=== PATIENT | male | born 1930 | race Caucasian/White ===

== ENCOUNTER 2021-06-22 17:22 | Emergency (ER) | payer OTHER ==
[~2021-06-22] VITALS: Ht 167.6 cm; Wt 72.6 kg
[2021-06-22 17:59] LABS: ABSOLUTE NEUTROPHILS 5.2 thou/uL (1.4-8.2); BASOPHILS 1.1 % (0.0-2.0); EOSINOPHILS 3.3 % (0.0-3.0); HEMATOCRIT 45.4 % (42.0-52.0); HEMOGLOBIN 14.9 gm/dL (14.0-18.0); LYMPHOCYTES 16.5 % (24.0-44.0); MCH 31.1 pg (26.0-34.0); MCHC 32.8 g/dL (28.0-37.0); MCV 94.9 fL (80.0-100.0); MONOCYTES 10.2 % (1.0-8.0); PLATELET COUNT 201 thou/uL (150-400); POLYS 68.9 % (36.0-66.0); RBC 4.78 mil/uL (4.50-6.00); WBC 7.5 thou/uL (4.0-11.0)
[2021-06-22 18:26] LABS: CALCIUM 9.4 mg/dL (8.5-10.1); CREATININE 1.9 mg/dL (0.7-1.3); POTASSIUM 4.2 mmol/L (3.5-5.1)
[2021-06-22 18:29] LABS: ALBUMIN 3.8 g/dL (3.4-5.0); TOTAL BILIRUBIN 0.5 mg/dL (0.2-1.0); TOTAL PROTEIN 6.8 g/dL (6.4-8.2)
[2021-06-22 18:43] LABS: URINE BILIRUBIN NEGATIVE (Negative); URINE BLOOD 1+ (Negative); URINE CLARITY CLEAR; URINE COLOR YELLOW; URINE GLUCOSE-RANDOM* NEGATIVE (Negative); URINE KETONES TRACE (Negative); URINE LEUKOCYTES-REFLEX NEGATIVE (Negative); URINE NITRITE-REFLEX NEGATIVE (Negative); URINE PROTEIN (DIPSTICK) 1+ (Negative); URINE UROBILINOGEN 0.2 E.U./dl (0.2-1.0)
[2021-06-22 19:00] LABS: SQUAMOUS None Seen /LPF (0-3)
[2021-06-22 19:01] LABS: BACTERIA-REFLEX 1-9 Few /HPF (None Seen); CRYSTALS None Seen /LPF (None Seen); HYALINE CASTS 0-3 Few /LPF (None Seen); URINE WBC-REFLEX 0-5 Rare /HPF (0-5)
[2021-06-23 01:42] VITALS: BP 161/86
[2021-06-23] MEDS ORDERED: PROSCAR 5MG TABL5 M1 PO (03:54)
[2021-06-23] MEDS ORDERED: CRESTOR40 MG PO (03:54)
[2021-06-23] MEDS ORDERED: PLAVIX 75 MG TA75 M1 PO (03:54)
[2021-06-23] MEDS ORDERED: AMLODIPINE BESY10 MG PO (03:54)
[2021-06-23] MEDS ORDERED: TIMOLOL MALEATE5 M2 OPHTHALMIC (03:55)
[2021-06-23] MEDS ORDERED: PROTONIX40 M4 PO (03:56)
[2021-06-23] MEDS ORDERED: FLUTICASONE PRO16 GM NARES (03:56)
--- NOTE | 2021-06-23 08:06 | EKG ---
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: MAGUI : [id number] Requested By: Isaiah Davis Order Number: [id number] MD: Wallace Montoya Measurements Intervals [place] Rate: 60 P: DE: 221 QRS: -57 QRSD: 137 T: -51 QT: 445 QTc: 445 Interpretive Statements Atrial-paced complexes Prolonged DE interval RBBB and LAFB No previous ECG available for comparison Electronically Signed On 06-23-2021 8:06:12 INSULATION INSTALLER by Wallace Montoya [email or web address] <ELECTRONICALLY SIGNED> By: Wallace Montoya MD, [facility] 06/23/21 0806 [id number] 1757 Wallace Montoya MD, FACC /EPI
== END 2021-06-23 02:26 ==
LOC: ER 17:22
PROVIDERS: Emergency Medicine
DX: R44.3 Hallucinations, unspecified (principal); Z20.822 Contact with and (suspected) exposure to COVID-19; I25.2 Old myocardial infarction; Z86.73 Personal history of transient ischemic attack (TIA), and cerebral infarction without residual deficits

== ENCOUNTER 2021-06-22 23:30 | Inpatient (IN) | payer OTHER ==
[2021-06-23 03:20] VITALS: BP 147/66
[2021-06-23] MEDS ORDERED: AMLODIPINE BESY10 MG PO (03:54)
[2021-06-23] MEDS ORDERED: CRESTOR40 MG PO (03:54)
[2021-06-23] MEDS ORDERED: PLAVIX 75 MG TA75 M1 PO (03:54)
[2021-06-23] MEDS ORDERED: PROSCAR 5MG TABL5 M1 PO (03:54)
[2021-06-23] MEDS ORDERED: TIMOLOL MALEATE5 M2 OPHTHALMIC (03:55)
[2021-06-23] MEDS ORDERED: FLUTICASONE PRO16 GM NARES (03:56)
[2021-06-23] MEDS ORDERED: PROTONIX40 M4 PO (03:56)
--- NOTE | 2021-06-23 07:17 | NUR ---
PT ARRIVED ON THE UNIT AT 0300 IN A STABLE CONDITION.PT IS ALERT AND ORIENTED X4. PT HAS URINE FREQUENCY. PT HAS IV IN THE RIGHT WRISH WITH NS @25OML/HR. PT HAS +1 EDEMA TO FEET. PT IS ON RA. PT DID NOT VERBALIZE ANY CONCERNS AND NO VISIBLE SIGN OF DISTRESS NOTED.
--- NOTE | 2021-06-23 08:36 | NUR ---
ARRIVED ON THE FLOOR @ 0300 ON 06/23/21, A&OX4 WITH CONFUSION. PLEASANT AFFECT NOTED, REPORTS RESIDES WITH HIS IN A SECONDARY DWELLING UNIT ON THE SON'S PROPERTY ON [address] [facility]. PATIENT WEARING GLASSES, NEEDS HEARING AIDES, IS [place], BUT DOES NOT HAVE HEARING AIDES WITH HIM. 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 SKIN INTACT, PEDAL PULSES PRESENT, TOENAILS LONG AND THICK, FEET NOTED TO HAVE +1 EDEMA, RED DOTS NOTED ON LOWER EXTREMITIES. HRRR, LUNGS CTA BILAT, ABD N BS X4Q, PATIENT REPORTS BM ON 06/23. REPORTS PAIN IN LOWER BACK, ESPECIALLY AFTER WORKING. TAKES TYLENOL PM @ HS FOR PAIN. IV STARTED IN RIGHT WRIST, ONE ATTEMPT, WITH NS RUNNING @ 250 CC/HOUR FOR 1000ML BAG. HIGH FALL RISK AND NEEDS TO USE A WALKER FOR AMBULATION SAFETY. BED IN LOW POSITION, BED ALARM SET. WILL CONTINUE TO MONITOR FOR COMFORT AND SAFETY.
[2021-06-23 09:21] VITALS: BP 132/79
[2021-06-23 13:36] LABS: CALCIUM 9.1 mg/dL (8.5-10.1); CREATININE 1.3 mg/dL (0.7-1.3); POTASSIUM 3.7 mmol/L (3.5-5.1)
--- NOTE | 2021-06-23 17:15 | NUR ---
PATIENT WAS IN BED AWAKE THIS MORNING WHEN CARE ASSUMED. IV RUNNING AT 250ML/HR. IV INFUSION STOPPED AT 0930HRS, SALINE LOCK FLUSHED WITH NS. PATIENT HAD BREAKFAST IN ROOM THIS MORNING, CONSUMED 100%, HE IS EATING MEALS, AND DRINKING FLUIDS WELL. PATIENT IS ALERT, AND ORIENTED X 1-2, HE IS FORGETFUL, VERY CONFUSED. PATIENT IS PRESENTING WITH VISUAL HALLUCINATION, SEEING TWO MEN SITTING AT THE SIDE HIS BED. PATIENT RESPONDS TO INTERNAL STIMULI, TALKING TO SELF, AND UNSEEN OTHERS. PATIENT TOOK ALL MEDICATION WHOLE WITHOUT DIFFICULTY. PATIENT AMBULATE WITH ASSIST OF ROLLER WALKER, GAIT UNSTEADY. PATIENT REQUIRES ASSIST OF STAFF TO COMPLETE ADL, ABLE TO FEED SELF. AFFECT IS FLAT, MOOD IS EUTHYMIC. PATIENT DENIES SUICIDAL/HOMICIDAL IDEATION, DENIES HAVING PHYSICAL PAIN. PATIENT IS NOT ABLE TO RESPOND APPROPRIATELY TO FURTHER ASSESSMENT QUESTIONS DUE TO COGNITIVE IMPAIRMENT. NO SIGN OF ACUTE DISTRESS NOTED AT THIS TIME, WILL MONITOR FOR SAFETY.
[2021-06-23 19:19] VITALS: BP 159/61
--- NOTE | 2021-06-24 04:37 | NUR ---
ASSUMED CARE ON 06/23/21 @ 1900, SALINE LOCK IV IN RIGHT PROXIMAL WRIST. USES URINAL AND TOILET AND HAS BEEN CONTINENT TODAY. HARD OF HEARING AND DOES NOT HAVE A HEARING AIDE WITH HIM. HIGH FALLS HAS A HX OF 2-3 FALLS IN THE LAST WEEK. A&OX2-3 WITH CONFUSION AND IRRITATION NOTED. RETIRED TO BED @ , BED IN LOW POSITION, BED ALARM SET, WILL CONTINUE TO MONITOR FOR COMFORT AND SAFETY PER UNIT PROTOCOL.
[2021-06-24 06:15] LABS: HEMATOCRIT 43.3 % (42.0-52.0); HEMOGLOBIN 14.3 gm/dL (14.0-18.0); MCH 31.1 pg (26.0-34.0); MCHC 33.1 g/dL (28.0-37.0); RBC 4.6 mil/uL (4.50-6.00); RDW 13.9 % (10.5-14.5); WBC 7.7 thou/uL (4.0-11.0)
[2021-06-24 06:29] LABS: CALCIUM 8.9 mg/dL (8.5-10.1); CREATININE 1.1 mg/dL (0.7-1.3); POTASSIUM 3.5 mmol/L (3.5-5.1)
[2021-06-24 06:58] LABS: FOLIC ACID 10.3 ng/mL (8.6-58.9)
[2021-06-24 09:29] VITALS: BP 102/85
--- NOTE | 2021-06-24 10:22 | NUR ---
New [facility] admit with hallucinations. Hx CVA, HI. Pt able to answer questions during visit, reported "I cleaned my plate this morning". No specific food preferences indicated. Wt stable from reported usual wt of 160 lb. Folate and B12 wnl. Low nutrition risk
--- NOTE | 2021-06-24 14:28 | NUR ---
Alert and orientated to person, place and year. Denies SI/HI. Wants to see an opthamologist--Dr. Soler notified. Calm, cooperative and compliant. Breath sounds clear. Reg HR auscultated. Color pink with brisk capillary refill and palpable peripheral pulses. +1 edema in feet. Clear yellow urine per urinal. Active bowel sounds over soft, rounded abdomen. States last BM was yesterday. #22 jelco per R wrist removed per order. Sitting in dining room with peers. No s/o distress. Appreciative of care.
--- NOTE | 2021-06-24 17:53 | NUR ---
06/23/[address] Soler met with the Pt in his room. Pt was able to answer questions. Pt stated " I see demonic forces in this place". Pt reported having visual hullucinations. Pt was preoccupied with the episcopal hullucinations during this time. Pt did not have any concerns or questions. TAYE and Dr. Richey were able to speak with the Pt's son, Juan Midgett [phone]. Juan reported the Pt is having hullucinations of adults and chiildren. The adults are fixing things around the Pt's home. Pt has went 36 hr with no sleep talking to the hullucinations. Pt has had 2 strokes. Pt currently lives with his . They are about 50-75 ft from Juan's home. Pt was born and raised in [place], [place]. Pt had 1 sister who from cancer. Pt has been 2x and has 3 children. Pt first marriage was 50 years and his . Pt has been to his current for 10 years. Pt recieved a master's degree in education. 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 Pt was in the [employer] during [place] [employer]. Drug and ETOH use was denied. Pt has never smoked cigaretts. Juan had no questions or concerns at this time. A family meeting was scheduled for 06/28/2021 @ [id number]. TAYE will continue to follow
[2021-06-24 19:21] VITALS: BP 128/66
--- NOTE | 2021-06-24 22:36 | NUR ---
At onset of evening or night nurse supervisor pt was resting in bed asleep. This shift pt was alert and oriented to self. Pt was compliant with vital signs and medications. Pt was overall calm and cooperative, with moments of frustration. Pt was confused most of the night. Pt thought it was day time instead of night time. Pt made a comment that he could not use the commode "with all these kids around." Pt also stated that earlier today he had played baseball. Pt denied psych symptoms. Pt is a fall risk, but prefers to stand up and walk independently. Pt can be slightly resistive when staff is trying to help and will verbalize "I can do it myself." Fall precautions are in place. Will continue to monitor.
[2021-06-25 10:26] VITALS: BP 145/63
--- NOTE | 2021-06-25 13:32 | NUR ---
Sitting at table in dining room this AM. No s/o distress. Alert and orientated X3. When asked how his night was he said to not even ask. Denies SI/HI. Calm, cooperative and compliant. Denies depression and hallucinations. Breath sounds clear. Reg HR auscultated. Color pink with brisk capillary refill and palpable peripheral pulses. Active bowel sounds over soft, rounded abdomen. Independent with voiding. Participating in groups this AM. No s/o distress.
--- NOTE | 2021-06-25 18:00 | NUR ---
TAYE recieved and email from [facility] with the DPOA document. SW printed and placed a copy in the chart
[2021-06-25 19:46] VITALS: BP 135/63
--- NOTE | 2021-06-25 23:01 | NUR ---
At onset of shift supervisor rn pt was sitting in day room watching TV. This shift pt was alert and oriented x4 during initial assessment. Pt stated the correct date, the correct location, and stated he is in the hospital for "hallucinations." Pt stated the hallucinations have been "awful" today. Pt was compliant with medication and vital signs. After taking medication RN walked pt back to his room to use the restroom. Once pt and RN were in patient's room pt made several comments about seeing children, saying someone was asking for ransom. Pt stated he wanted to wear his shoes so he could run to protect himself. Pt stated he was not scare of dying. Pt also stated that he did not have any weapons. Pt did lay down for short periods of time, but he would get out of bed and stating he was seeing children around. Pt was observed talking to himself while lying in bed about protecting himself. Pt received PRN 2.5mg IM zyprexa at 2249. Pt was cooperative with taking the medication and thanked nurse. Pt is high fall risk. Fall precautions in place. Will continue to monitor.
[2021-06-26 09:00] VITALS: BP 160/93
[2021-06-26 09:18] VITALS: BP 160/93
--- NOTE | 2021-06-26 09:28 | H ---
[facility] [place] [address] HISTORY AND PHYSICAL Name: PHILIP SALDIVAR Room #: 519A-A ADM IN M.R.#: [id number] Admission: 06/23/21 Attend Phys: Andrea Soler DO Discharge: Date of : [birth year] Report #: [id number] THIS REPORT FOR: cc: FAM - Family physician unknown FAM - Family physician unknown Andrea Soler DO ~ DATE OF SERVICE: 06/23/2021 INPATIENT PSYCHIATRIC EVALUATION ATTENDING PSYCHIATRIST: Norma MauricioO. MEDICAL CONSULTANTS: Tammy Spann APRN; Luis Tan M.D. and Tariq Ram M.D. REASON FOR ADMISSION: Overt hallucinations. SOURCES OF INFORMATION: Emergency Room records, other records here at [facility], telephone conversation with his son and reported Brian GRIFFITH. CHIEF COMPLAINT: Unspecified. HISTORY OF PRESENT ILLNESS: This is an 89-year-old male, to his second . His first was . The patient was brought in by his son. He lives about 75 yards from his son with his current spouse. Complains of hallucinations, worsening over the past 5 days. He is seeing people that are not there and having conversations with them. Son notes the patient has agitation and irritability that are not usual for the patient. He is not sleeping and staying awake for up to periods of 36 hours. Son notes 2-year history of hallucinations, has gotten considerably worse over the last week, does not take medications for psychiatric issues. The patient notes "distorted vision." The patient had a fall 2-3 days ago. He does not believe he hit his head. He takes Plavix. PAST MEDICAL HISTORY: Includes hypertension, heart attack, cardiac stents, 2 mild strokes, hyperlipidemia and abdominal aortic aneurysm, stent placed. Son denies history of prior diagnosis of dementia. Stroke x 2, cardiac pacemaker placed in 2019, history of [place]. SOCIAL HISTORY: Denies smoking. Denies alcohol use. Denies recreational drug use. REVIEW OF SYSTEMS: From ER, EYES: Denies eye pain, visual change or discharge. HENT: Denies hearing changes, ear drainage, ear infections, ear pain, neck pain [facility] [address] [place] [address] HISTORY AND PHYSICAL Name: PHILIP SALDIVAR Room #: 519A-A ADM IN ..#: [id number] Admission: 06/23/21 Attend Phys: Andrea Soler DO Discharge: Date of : [birth year] Report #: [id number] or neck stiffness. RESPIRATORY: Denies cough, shortness of breath, hemoptysis or respiratory distress. CARDIOVASCULAR: Denies chest pain, chest pain with exertion, or edema. GASTROINTESTINAL: Denies abdominal pain, nausea, vomiting, diarrhea. GENITOURINARY: Denies burning, frequency or dysuria. MUSCULOSKELETAL: Denies back pain, joint pain, muscle weakness or myalgias. SKIN: Denies rash. NEUROLOGIC: Denies weakness, headache, loss of consciousness. PSYCHIATRIC: Positive for hallucinations. Otherwise, 10-point review of systems negative. Weight 73.618 kilograms. EKG was done in the ER showed atrial paced complexes, prolonged SD interval of 221 milliseconds, QT 445 milliseconds, QTc 445. Physical exam was grossly normal. LABORATORY DATA: Hematology: White count 7.5, H and H 14.9 and 45.4, which is normal, platelet count 201,000. These percentages are slightly abnormal, but I do not think that is material. Electrolytes: Sodium 141, potassium 3.7, chloride 105, bicarbonate 24, anion gap 12, BUN 26, creatinine 1.3, estimated GFR 52, glucose 176, calcium 9.1, total bilirubin 0.5, AST 37, ALT 35, alkaline phosphatase 63, total protein 6.8, albumin 3.8. Urinalysis, 1+ protein, trace ketones, 1+ blood, 12 RBCs, few bacteria, hyaline casts, glucose negative in the urine. Culture was not triggered. SARS-CoV-2 by PCR was not detected. IMAGING: Head CT done in the ER showed no acute intracranial process, moderate atrophy and chronic ischemic changes. Chest x-ray done in the ER showed no acute abnormalities. PHYSICAL EXAMINATION: VITAL SIGNS: Temperature 35.6; pulse 135, actually this is this evening today, it was 71; respirations 17; BP 159/61 and O2 sat 95%. MUSCULOSKELETAL: Assisted gait with walker. I believe, he has hearing aids, elder age appearing appearance. MENTAL STATUS EXAMINATION: Well-developed, ill-appearing male. Attention limited. Concentration limited. Speech deliver soft. Thought process, linear and goal directed. Thought content, hyper-catholic seems in general. Denied SI, HI. No auditory, visual, or tactile hallucinations, hopelessness, helplessness. Mood and affect was congruent, constricted. Memory not formally tested. We will defer sums till tomorrow. Insight and judgment, limited. Fund of knowledge, at least average. He was oriented to person, [facility] [address] [place] [address] HISTORY AND PHYSICAL Name: PHILIP SALDIVAR Room #: 519A-A ADM IN M.Jenny.#: [id number] Admission: 06/23/21 Attend Phys: Andrea Soler, DO Discharge: Date of : [birth year] Report #: [id number] month, year, I believe, pretty close on date. FORMULATION: An 89-year-old male brought in by his son due to increased hallucinations. PLAN: The patient is admitted voluntarily, seen in Behavioral Health Unit in [facility]. Hospitalist is consulted to evaluate and stabilize. It sounds like he has not had a full dementia workup. His CT and such were done in the ER. I will go ahead and order a vitamin D, syphilis, B12, just to see if there are any obvious contributing factors. It does not sound like he has risk factors for infectious diseases otherwise, so I will not do HIV or hepatitis. We will go ahead and start the patient on an antipsychotic as well. I have already entered in for olanzapine 2.5 mg twice a day with IM backup, atorvastatin 80 mg daily, finasteride 5 mg p.o. daily, Plavix 75 mg p.o. daily, amlodipine 10 mg p.o. daily, pantoprazole [address] Ram is going to give other 500 mL of NS tonight given that his creatinine was acutely elevated and is now at the upper limit of normal. Estimated length of stay 10-14 days. We will be doing a full dementia evaluation in the next few days. We will ask OT to do any evaluation as well. STRENGTHS: He is insured, supportive family. He has DPOA. WEAKNESSES: Age and likely dementia. 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 60 minutes spent on the case today, greater than 50% was for review of records and coordination of care. From notes, he is a [employer] in [employer]. I do not think he saw a combat. No history of psychiatric hospitalization. Did have some outpatient treatment for depression. 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 Born around [place], [place]. He has 3 children and 2 marriages as described. First , 50 years of marriage. Family meeting this coming Monday. <ELECTRONICALLY SIGNED> By: Andrea Soler DO 06/26/21 0928 [id number] Andrea Soelr DO /nt
--- NOTE | 2021-06-26 16:27 | NUR ---
PATIENT INTERACTING VERY LITTLE WITH STAFF/OTHER PATIENTS. C/O BEING UNABLE TO SWALLOW THIS AM. "I CAN'T SWALLOW" "MY THROAT WILL SWELL UP'. PATIENT OFFERED WATER AND ENCOURAGED TO TAKE A SIP. ABLE TO DO SO WITHOUT DIFFICULTY. TOOK MEDICATIONS OFFERED WITHOUT DIFFICULTY. EATING/DRINKING MINIMAL. AWAKE AND ALERT BUT SPENT MAJORITY OF SHIFT IN ROOM.
--- NOTE | 2021-06-26 16:40 | NUR ---
PATIENT ALERT AND ORIENTED FOR MOST OF SHIFT;AT TIMES APPEARS CONFUSED AND MUMBLING, OTHER TIMES COHERENT CONVERSATION. UP TO BR X 2 THIS SHIFT, VOIDED SMALL AMOUNT IN TOILET. BM X 2, SOFT. DENIES HALLUCINATIONS. WILL CONTINUE TO MONITOR URINE OUTPUT WITH BLADDER SCAN/ST CATH IF NECESSARY. TOOK MEDS WITHOUT DIFFICULTY. AMBULATING WITH 1 X WALKER.
--- NOTE | 2021-06-26 17:40 | NUR ---
PATIENT BLADDER SCANNED FOR 460. STRAIGHT CATH'D FOR APPROX 675ML CLEAR URINE.
[2021-06-26 20:03] VITALS: BP 115/57
--- NOTE | 2021-06-27 01:24 | NUR ---
At onset of flight/transport nurse pt was sitting in day room talking to himself. This shift pt was alert and was able to provide the date, place and his name. RN asked pt how his hallucinations have been today and pt responded "oh fine." Pt then talked with RN about the holy spirit forgiving people. Speech was tangential and thought process disorganized. Pt sat in the day room until approx 0000. Pt was able to fall asleep. Pt is high fall risk. Fall precautions in place. Will continue to monitor. RN plans to bladder scan patient when patient wakes up or becomes restless. RN will report back.
[2021-06-27 07:31] VITALS: BP 119/67
[2021-06-27 12:50] LABS: URINE BILIRUBIN NEGATIVE (Negative); URINE BLOOD 3+ (Negative); URINE CLARITY CLEAR; URINE COLOR YELLOW; URINE GLUCOSE-RANDOM* NEGATIVE (Negative); URINE KETONES NEGATIVE (Negative); URINE LEUKOCYTES-REFLEX NEGATIVE (Negative); URINE NITRITE-REFLEX NEGATIVE (Negative); URINE PROTEIN (DIPSTICK) 3+ (Negative); URINE SPECIFIC GRAVITY >= 1.030 (1.005-1.035); URINE UROBILINOGEN 0.2 E.U./dl (0.2-1.0)
[2021-06-27 13:13] LABS: BACTERIA-REFLEX 1-9 Few /HPF (None Seen); CRYSTALS None Seen /LPF (None Seen); HYALINE CASTS 0-3 Few /LPF (None Seen); SQUAMOUS None Seen /LPF (0-3); URINE RBC 3-10 Few /HPF (NONE SEEN); URINE WBC-REFLEX 0-5 Rare /HPF (0-5)
--- NOTE | 2021-06-27 16:23 | NUR ---
PT ALERT TO SELF VERY CONFUSSED TODAY. UNABLE TO ANSWER ASSESSMENT QUESTIONS THIS SHIFT. PT OBSERVED TALKING TO UNSEEN OTHERS, AND VERY AGITATED. PRN MEDICATIONS GIVEN. PT NOW SLEEPING IN THE DAY ROOM. PT DID TOLERATE MEDS AND MEALS TODAY.
[2021-06-27 19:10] VITALS: BP 109/57
--- NOTE | 2021-06-28 05:33 | NUR ---
patient aox1 confused and forgetful. bladder scan done patient had >400 at around 2300, patient was wet when i wanted to straight cath, bladder scan done again,post void urine was <100ml. patient encouraged fluid and food. fall precaution in place. patient refused to sleep in bed after attempt to get up several times. patient in day room asleep bretahing regular and unlaboured.
[2021-06-28 09:39] VITALS: BP 125/69
[2021-06-28 09:44] VITALS: BP 125/69
--- NOTE | 2021-06-28 12:14 | NUR ---
RESUMMED CARE FROM OVERNIGHT SHIFT THIS AM, PATIENT SITTING IN DAY ROOM QUIET. PATIENT IS SLEEPY AND APPEARS TO BE SEDATED, PATIENT WILL ANSWER QUESTIONS WHEN ASKED. PATIENT ALERT TO SELF AND SITUATION PATIENT DENIES SI/HI/AH/VH AT PRESENT. PATIENT TOOK MEDICATION CRUSHED IN YOGART AND WAS FEED HIS BREAKFAST. PATIENTS ABDOMEN SOFT BOWEL SOUND PRESENT, PATIENTS LUNGS CLEAR. PATIENT BLADDER SCANNED THIS AM HE HAD 424 CC OF URINE. PATIENT STRAIT CATHED AND I GOT 424 CC OUT. PATIENT ALSO HAD A SOAKED BRIEF PRIOR TO BLADDER SCAN; DR YOUNGBLOOD IS GOING TO INCREASE FLOMAX. PATIENT HAS NOT DISPLAYED ANY BEHAVIORS WILL CONTINUE TO MONITOR PATIENT FOR SAFETY AND BEHAVIORS.
--- NOTE | 2021-06-28 18:34 | NUR ---
TAYE and Dr. Soler participated in a family meeting with the Pt's family. Rolf (DPOA), Alisson( Daughter), Jc Loya(SON), and Leila( ) were apart of this meeting via phone confrence. An update was given on the Pt. Discharge recommendations were discussed. It was recommended that if Pt improves he may be appopriate for a skilled rehab. If no improvement Pt will need 24/7 care and supervision. The family initally stated they wanted to bring the Pt home and do care in the home. The family then inquired about LTC placement. TAYE provided education about SNF and LTC. TAYE also went over the cost of in home care and LTC. TAYE provided education on Medicaid. The family requested a medicaid screening on the Pt. TAYE went over the process of identifying a LTC and encouraged the family to start touring and calling facilities. There were no further questions or concerns at this time. TAYE emailed a request to [facility] for a medicaid screening on this Pt.
[2021-06-28 22:34] VITALS: BP 106/69
--- NOTE | 2021-06-29 05:21 | NUR ---
PT IS ORIENTED TO SELF ONLY BUT IS PLEASANTLY CONFUSED. HE HAS BEEN COOPERATIVE WITH NURSING CARES AND TOOK HIS MEDS WELL WHEN CRUSHED IN [place]. PT HAS BEEN SLEEPING SINCE AROUND 2100 LAST EVENING. RESPIRATIONS EVEN AND UNLABORED. BLADDER SCANNED AT BEDTIME; ONLY 101ML IN BLADDER. PT HAS BEEN VOIDING IN HIS BRIEF AND OCCASSIONALLY WITH THE URINAL. FALL PRECAUTIONS IN PLACE. WILL CONTINUE TO MONITOR FURTHER.
[2021-06-29 09:57] VITALS: BP 112/56
[2021-06-29 12:16] VITALS: BP 112/56
--- NOTE | 2021-06-29 13:31 | NUR ---
Primary nursing care done by Trae Godoy. Placed in bed by psychologist research assistant. Alert and orientated to person and place. Denies SI/HI/pain. Concerned about hallucinations but states they are better than in the past. Breath sounds clear. Reg HR auscultated. Color pink with brisk capillary refill and palpable peripheral pulses. +1 edema in feet. Brief dry. Active bowel sounds over soft, rounded abdomen. Erythema between buttocks with two tiny blisters/excoriation to L buttock. Able to stand and bear wt, needs assist with transfer. ROHO cushion placed in chair.
--- NOTE | 2021-06-29 15:33 | NUR ---
Resummed care @0700; Patient was located in his room, lying in bed comfortably; Patient was assisted to chair *1 assist with GaitBelt, Patient is able to bear weight; No S/O acute distress noted; A&O*2; Patient presents kgyk-oymopcniqgk-qoaccyqm-pleasent; Patient has a slower speech, although clear; REAL ESTATE LEGAL SECRETARY noted redness to patient buttocks this morning with 2 areas of possible start of blistering; REAL ESTATE LEGAL SECRETARY place ROHO under patient this afternoon- Barrier cream Q2H with Q2H position changes; Patient has been assisted into bed throughout the day as requested; V/S present hypotensive- Otherwise stable; Patient denies SOB-CP; Patient complaint of some soreness in his armpit area on both sides; Ibis verbalized concern to REAL ESTATE LEGAL SECRETARY that he doesn't know were his glasses are located, REAL ESTATE LEGAL SECRETARY searching for said glassess; Esme 1100; AUTOMATION DESIGN ENGINEER brought bag to LPNs attention after AUTOMATION DESIGN ENGINEER went to receive clothing from the patients personal locker; When AUTOMATION DESIGN ENGINEER was removing items, multiple pill bottles were removed from a pair of patients parker. A Black wallet was also identified; Medications logged and taken tp inpatient pharm. and wallet was logged and checked in Security; High-Fall precautions are in place; Will continue to monitior per [facility] protocol; Chair alarm on;
--- NOTE | 2021-06-29 17:31 | NUR ---
TAYE recieved a call from Juan Hinds concerning placement. Juan stated he would like a referral sent to [facility] in [place]. Juan stated the facility was renovating and may not have openings for 2-3 weeks. Juan stated he was working on other choices. Taye provided a general update on the Pt. TAYE encouraged Juan to be diligent on the search. There were no other questions or concerns at this time
[2021-06-29 19:18] VITALS: BP 111/60
[2021-06-29 20:26] VITALS: BP 138/64
--- NOTE | 2021-06-29 21:34 | NUR ---
RESUMMED CARE FROM DAY SHIFT THIS EVENING, PATIENT SITTING IN DAY ROOM ALERT. PATIENT STATES HE FEELS MUCH BETTER ALERT TIMES 2-3 PATIENT DENIES SI/HI/AH/VH AT PRESENT. STATES HIS DEPRESSION AND ANXIETY IS A 3 HE STATED HE HAS TO URINATE OFTEN. HIS FLOMAX HAD BEEN INCREASED PATIENTS ABDOMEN SOFT BOWEL SOUNDS PRESENT. PATIENTS LUNGS CLEAR PATIENTS AFFECT IS MUCH BRIGHTER HE IS ABLE TO HAVE A CONVERSATION WITH STAFF. PATIENT HAS NOT DISPLAYED ANY BEHAVIORS. WILL CONTINUE TO MONITOR PATIENT FOR SAFETY AND BEHAVIORS.
--- NOTE | 2021-06-30 04:21 | NUR ---
Pt resting in no acute distress.Slept majority of the noc.Bladder scanned as per orders after incontinent episode,post void of 190ml noted.No concerns noted at this time.
--- NOTE | 2021-06-30 08:24 | NUR ---
Followup: ST evaluated 06/29 due some concerns for dysphagia. Pt with increased mastication time, diet changed to mech altered chopped. Eating 80-100% of meals. Remains low nutrition risk
[2021-06-30 10:24] VITALS: BP 111/71
--- NOTE | 2021-06-30 11:40 | NUR ---
PATIENT HAS BEEN UP, AND OUT ON THE UNIT, PARTICIPATES IN GROUP THERAPY. PATIENT AMBULAE WITH ASSIST OF ROLLER WALKER, GAIT SLIGHTLY UNSTEADY. PATIENT IS ALERT, AND ORIENTED X 1-2, ABLE TO VOICE NEED. PATIENT IS FORGETFUL, AND CONFUSED AT TIMES, HE FORGETS TO USE HIS WALKER INTERMITTENTLY. PATIENT TOOK ALL MORNING MEDICATION WHOLE WITHOUT DIFFICULTY, HE IS EATING MEALS, AND DRINKING FLUID WELL. PT/OT WORKING WITH PATIENT. PATIENT DENIES SICIDAL/HOMICIDAL IDEATION, HE RATES BOTH DEPRESSION/ANXIETY 3/10, DENIES HAVING PHYSICAL PAIN/AUDITORY/VISUAL HALLUCINATION. AFFECT IS BRIGHT, MOOD IS CALM/EUTHYMIC. NO SIGN OF ACUTE DISTRESS NOTED AT THIS TIME, WILL CONTINUE TO MONITOR FOR SAFETY.
--- NOTE | 2021-06-30 16:45 | NUR ---
TAYE and Dr. Richey spoke with Rolf concerning discharge. Placement was discussed. Rolf stated he did want to place his father as they would not be able to continue to care for the Pt in the home. Rolf is hoping to place the Pt in LTC and Pt's in an AL with in the same facility. SNF was discussed as an option for the Pt. Rolf is in agreement with SNF if the Pt is accepted into a facility. There were no other questions or concerns at this time. TAYE will continue to follow.
[2021-06-30 19:17] VITALS: BP 151/76
--- NOTE | 2021-06-30 23:31 | NUR ---
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 This shift pt was alert and oriented x4. Pt used the toilet before going to bed and was able to void withouth difficulty. Pt was compliant with medication and vital signs. Affect was broad, but pt appeared tired. Pt stated his day was good. Pt endorsed some hallucinations but stated they were not bad. Denied SI and HI. Pt is a high fall risk. Fall precautions in place. Will continue to monitor.
[2021-07-01 09:53] VITALS: BP 113/61
--- NOTE | 2021-07-01 10:26 | NUR ---
SW sent referrals to the following [facility]
[2021-07-01 12:47] VITALS: BP 113/61
--- NOTE | 2021-07-01 16:05 | NUR ---
Primary nursing care done by Poly Godoy LPN. Ambulated to room with walker with slow, steady gait. Alert and orientated X4. Calm, cooperative and compliant. Denies SI/HI. Breath sounds clear. Reg HR auscultated. Color pink with brisk capillary refill and palpable peripheral pulses. +2 edema in lower extremities. Yellow urine and large, soft formed brown stool per toilet. Active bowel sounds over soft, rounded abdomen.
[2021-07-01 19:28] VITALS: BP 118/47
[2021-07-01 21:23] VITALS: BP 118/47
--- NOTE | 2021-07-02 04:37 | NUR ---
PATIENT AAOX3 AND APPEARS TO BE MORE ALERT THAN PREVIOUS DAYS. PATIENT IS STILL SOMEWHAT CONFUSED HE SPEAKS FREQUENTLY ABOUT HIS . I AM UNABLE TO DETERMINE IF SHE IS STILL LIVING. PATIENT IS VERY FORGETFUL BUT IS CALM AND APPROPRIATE. HE IS ABLE TO AMBULATE WITH THE ASSISTANCE OF HIS WALKER. PATIENT IS SLOW AND IT TAKES HIM A WHILE TO USE THE RESTROOM. ASSISTED PATIENT BACK TO HIS BED. HE IS COMPLIANT WITH MEDICATIONS. DENIES PAIN OR OTHER NEEDS. WILL CONTINUE TO MONITOR.
[2021-07-02 06:27] LABS: CHOLESTEROL 112 mg/dL (<200); HDL CHOLESTEROL 37 mg/dL (>40); LDL CHOLESTEROL 58 mg/dL (<100); TRIGLYCERIDE 87 mg/dL (<150); VLDL 17 mg/dL (<40)
[2021-07-02 06:31] LABS: SERUM ASSESSMENT Clear
[2021-07-02 08:49] VITALS: BP 108/65
--- NOTE | 2021-07-02 10:58 | NUR ---
SITTING QUIETLY IN DAYROOM THIS AM-PARTICIPATED IN GROUP AND WOULD OFFER VERBAL RESPONSES WITH PROMPTING. ORIENTED TO PERSON/PLACE-NO TO DATE-SPEECH SLOW AND SOFT DIFFICULT TO UNDERSAND AT TIMES. DENIES PAIN/DISCOMFORT. APPETITE GOOD-ATE 100 PERCENT OF MEAL WITHOUT ASSISTANCE. WALKS WITH SBA X1 AND USE OF ROLLER WALKER.GAIT SLOW AND UNSTEADY AT TIMES. DID VOID X2 SO FAR THIS AM MODERATE AMOUNT-DARK YELLOW URINE-NO BLADDER DISTENSION NOTED OR REPORTED DURING AM EXAM. NO AGITATION/PSYCHOSIS NOTED OR REPORTED. DENIES SI/SH/HI. BP 108/55 DURING AM VS-DENIES DIZZINESS WHEN UP AMBULATING . BP RECHECK AT 1100 114/70-
[2021-07-02 19:44] VITALS: BP 140/66
--- NOTE | 2021-07-02 22:34 | NUR ---
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 This shift pt was alert to self and place. Pt was compliant with medication and vital signs. Pt talked to nurse about restorationist and then stated he feels like he won't "make it out of here." Pt denied SI, HI, and AVH, but stated he didnt have a very good day. Pt appeared sad and affect was more constricted today. Pt complained of his legs being swollen. Pt does have pitting bilateral edema on feet and lower legs. RN applied SOPHIA hose while pt is sleeping and will remove in the morning. Pt has been urinating with some hesitancy, but pt voids a good amount of urine when toileting. Pt complained that he felt like he was getting more blood clots in his left lower leg. RN assessed legs and there is no redness or warmth. Tammy Spann was informed and she ordered an ultrasound of pt's leg. Pt is low fall risk. Fall precautions are in place. Will continue to monitor.
[2021-07-03 08:08] LABS: GLYCOHEMOGLOBIN (HGB A1C) 5.3 % (4.8-5.6)
[2021-07-03 12:23] VITALS: BP 127/66
--- NOTE | 2021-07-03 14:26 | NUR ---
Resummed care @0700: Patient located in the dinning area along side his peers; No acute distress noted. A&O*2 - Forgetful. Patient presents with a flat affect, withdrawn and over-all sad. Denies SI/HI/AVH. Denies ChestPain. Verbalizes a generalized pain. Bilateral +2 edema present in lower extremities. Jaden Hose are on the patient at this time, per nurses report patient has them on during daytime hours. VSS. Gait visualized to be steady but weakness present, patient ambulates with a walker and standby assist. BSP*4.ND.NT; Lung sounds present diminished with crackles in bilateral bases, Moist cough present. Patient complaints of increased SOB and increase in cough. MD notified of LPNs findings; Patient verbalizes he has been coughing up flem-MARKET MAKER has not visualized. Ultrasound completed this morning per reports on earlier shift of possible blood clot in Left calf. MARKET MAKER assessed the Left calm and tenderness is present. Results reviewed. High-fall risk precautions in place. Will continue to monitior per [facility] protocol.
--- NOTE | 2021-07-03 23:05 | NUR ---
At onset of other spatial scientist pt was resting in bed awake. This shift pt was alert and oriented to self, place, and situation. Pt was up ad nick with a walker and staff on standby. Pt was incontinent in brief a few times through the night and also voided in toilet. Pt was compliant with medication and vital signs. Pt was conversational with RN. Affect was constricted. Pt spoke to family over the phone in the evening. Pt stated the conversation went well and they are working on finding pt a new home. Pt denied SI, HI and AVH. Pt is a fall risk. Fall precautions are in place. Will continue to monitor.
[2021-07-04 09:40] VITALS: BP 118/69
[2021-07-04 09:43] VITALS: BP 118/69
--- NOTE | 2021-07-04 13:15 | NUR ---
Assumed pt care from overnight shift this am. Pt presented calm and pleasant, and was oriented to self and place during this time. Pt denied depression/anxiety, and si/hi. No hallucinations voiced at this time. Pt took all medications whole when prompted; all medications well tolerated during this time. Prior to getting to activity area, pt assisted with toileting. Currently is using combination of gerichair and walker to get around when needed. No pain voiced during assessment. Participating in group with peers when prompted. No further concerns at this time.
--- NOTE | 2021-07-04 16:52 | NUR ---
Referral faxed to: [facility]
[2021-07-04 19:30] VITALS: BP 118/69
--- NOTE | 2021-07-05 00:47 | NUR ---
PATIENT CARE WAS RESUMED AT 1900. HE IS ALERT AND ORIENTED X2 WITH SOME FORGETFULNESS. HE IS A MODERATE ASSIST WITH CARE. LUNGS ARE CLEAR BS ACTIVE X4 QUAD. HE TOOK HIS MEDS WHOLE AND WENT TO BED. BED IS LOW, LOCKED AND ALARMED. HE IS CONTINENT OF BOWEL AND BLADDER. HE C/O CHEST PAINS AND VITAL SIGN WAS NOTED AT 146/80,70,98.I, 96%, . MYLANTA WAS ALSO GIVEN PER INDIGESTION . PATIENT IS CALM AND ON RESSESSMENT VS NOTED AT 133/77, 62, 97%,18, . CALL TO NILDA Tafoya AND ORDER FOR START EKG AND TROPONIN IN PLACE AND CALL MADE OUT TO LAB. ONCOMING NURSE IS NOTIFED. CONTINUE CARE AND MONITOR.
--- NOTE | 2021-07-05 03:46 | NUR ---
RN assumed care of patient at 0100. RN received report from previous shift. Previous nurse reported to this RN that an order for a stat troponin was received. Order was entered at 0036, but the order was entered incorrectly as a routine lab draw. This RN noticed order was entered incorrectly and re-entered order as stat at 0258. RN called to notify lab at 0259. Lab did not answer the phone. RN called lab again at 0305, 0318, 0323, no answer for any of these call times. RN called lab at 0338 and lab finally answererd stating they would page phlebotomy. Phlebotomy came to draw lab at 0350. Pt tolerated lab draw well. Will update when troponin levels return.
[2021-07-05 06:40] VITALS: BP 125/65
[2021-07-05 09:58] VITALS: BP 125/65
--- NOTE | 2021-07-05 10:26 | NUR ---
Resummed care @0700: Patient was located in bed resting comfortably. Patient was assisted by staff to the dinning area for breakfast. No S/O acute distress noted. Patient presents with a flat affect, sad, withdrawn, cooperative. A&O*2- confused, forgetful. Patient denied being in any pain at this time. Patient denied having any Chest Pain, although stated he was having some chest pains last night. FAMILY SERVICES COORDINATOR to communicate patients concerns and status to MD Ram. VSS on Room[employer]. Gait is visualized to be shuffled & weak, patient ambulates with his walker and standyby. +1 bilateral lower extremity edema is present. Voids without difficulty and verbalizes needs to staff. Lung sounds present diminished, crackles noted in the bases. Patient states having increased SOB when lying flat, and upon exertion. Denies SI/HI/AVH. High-Fall precautions are in place. Will continue to monitior per [facility] Protocol.
--- NOTE | 2021-07-05 13:52 | EKG ---
[address] [address] ELECTROCARDIOGRAM REPORT Name: PHILIP SALDIVAR Room #: 519A-A ADM IN M.R.#: [id number] Admission: 06/23/21 Attend Phys: Andrea Soler DO Discharge: Date of : [birth year] Report #: [id number] [facility] Test Date: 2021-07-05 Test Time: 00:29:56 Pat Name: PHILIP SALDIVAR Department: Room: [facility] Gender: M Slitter Scorer: NICHOLAS : 1930 Requested By: Tammy Spann Order Number: [id number] MD: Wallace Montoya Measurements Intervals [place] Rate: 64 P: 6 NH: 224 QRS: -67 QRSD: 134 T: -5 QT: 443 QTc: 457 Interpretive Statements Sinus rhythm Prolonged NH interval RBBB Compared to ECG 06/22/2021 17:57:16 Atrial-paced complex(es) or rhythm no longer present Electronically Signed On 07-05-2021 13:52:09 CHUTE MAN by Wallace Montoya [email or web address] <ELECTRONICALLY SIGNED> By: Wallace Montoya MD, [facility] 07/05/21 1352 0029 0029 Wallace Montoya MD, FAC /EPI
[2021-07-05 14:23] VITALS: BP 130/79
--- NOTE | 2021-07-05 15:56 | NUR ---
Pt was observed in the day room participating in both the social work group therapy session and the rec group session. The sw group session was a strengths exploration; the Pt shared that his family is a source of strength for him. Pt then indicated that his family is "fading" and reports feeling scared because of it. Pt shared other strengths he sees in himself are wisdom, gratitude, discipline, and self-control. 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 PT and SW spoke one-on-one after both group sessions. Pt indicated his excitment to call his for loyda's day. Pt was observed having a bright affect evidenced by him talking about his conversation with his - pt's demeanor appeared to be gregarious. Pt shared that when he was younger and thought about him getting older and at the end of his life he didn't know what to expect. Pt reports that now that he is at that stage of life, he is very pleased and thankful that he as been able to do so many things and remain active with his activities, i.e., gardening.
--- NOTE | 2021-07-05 17:24 | NUR ---
TAYE recieved and email from [facility] notifying the Pt has been accepted at [facility] in [place]. The discharge is set for 07/06/2021 @ 1000. TAYE did notify Rolf of this information. Rolf is in agreement to the placement. Rolf stated he would like to pick the Pt up and transport. TAYE provided the Rolf with picker tender information.
[2021-07-05 19:30] VITALS: BP 133/64
[2021-07-05 19:47] VITALS: BP 133/64
--- NOTE | 2021-07-06 02:26 | NUR ---
PATIENT CARE WAS RESUMED AT 1900. HE WAS RESTING IN HIS ROOM. ALERT AND ORIENTED. ABLE TO VERBALIZE SME NEEDS. LUNGS ARE CEAR BS ACTIVE X4 QUADS. HE DENIES CHEST PAINS/SI/AVH/HI AT THIS TIME.HE TOOK HIS MEDS WHOLE. CONTINENT OF BOWEL AND BLADDER. BED IS LOW LOCKED AND ALARMED. [id number] CHECK IS CTIVE AND ONGOING. CONTINUE CARE
[2021-07-06 08:21] VITALS: BP 125/71
--- NOTE | 2021-07-06 10:03 | NUR ---
Alert and orientated X3. Calm, cooperative and compliant. Denies SI/HI. Breath sounds clear. Reg HR auscultated. Color pink with brisk capillary refill and palpable peripheral pulses. +1 edema in lower extremities. Incontinent and then continent of yellow urine. BM this AM. Active bowel sounds over soft, rounded abdomen. Ambulates with walker with steady gait. Participating in group this AM.
[2021-07-06] MEDS ORDERED: MIRALAX17 GM PO (11:30)
[2021-07-06] MEDS ORDERED: PT HOME MEDICATION MISCELL (11:31)
--- NOTE | 2021-07-07 09:35 | D ---
[facility] [place] [address] DISCHARGE SUMMARY Name: JC SALDIVAR Room #: 519A-A DIS IN M.R.#: [id number] Admission: 06/23/21 Attend Phys: Andrea Soler DO Discharge: 07/06/21 Date of : [birth year] Report #: [id number] THIS REPORT FOR: cc: FAM - Family physician unknown FAM - Family physician unknown Andrea Soler DO ~ DATE OF SERVICE: 07/06/2021 INPATIENT PSYCHIATRIC DISCHARGE SUMMARY ATTENDING PSYCHIATRIST: Andrea Soler DO MODELING TEACHER: Jc Olmedo MD Please note greater than 40 minutes were spent on discharge activities today. DISCHARGE DIAGNOSES: Major neurocognitive disorder, likely due to Alzheimer's disease with behavioral disturbance, improved. Additional comorbidities include coronary artery disease with history of percutaneous coronary intervention. The patient reports intermittent fluttering in his chest. The patient had pacemaker interrogated today, no more results, so we will defer to outpatient care followup with that issue. Benign prostatic hypertrophy with history of urinary retention. He did require some straight cathing, but that resolved and Flomax was started this admission. Hypertension, on Norvasc. Hyperlipidemia, on a statin. GERD, on PPI. The patient will be discharging to the [facility] in [place], [place]. Psychiatric and medical care per receiving facility. The patient is dieting such mechanical chopped diet otherwise regular. Uses a walker, standby to moderate assist with physical and occupational therapy at [facility]. No wound care needed assistance with bathing. LABORATORY DATA: Significant laboratories this admission, hematology: White count 7.7, H and H 14.3 and 43.3, platelet count 182. Chemistry: Sodium 142, potassium 3.5, chloride 107, bicarbonate 26, anion gap 9, BUN 25, creatinine 1.1, estimated GFR 63, glucose 93. A1c 5.3, calcium 8.9, magnesium 2.0, total bilirubin 0.5, AST 37, ALT 35, alkaline phosphatase 63. Troponin I high sensitivity 19, total protein 6.8, albumin 3.8, triglycerides 87, cholesterol 112, LDL 50, HDL 37. B12 532. Folate 10.3. TSH 3.050. Urinalysis showed 3+ protein, 3+ blood, 3-10 RBCs, few bacteria, few hyaline casts. Culture was not triggered. COVID-19 serology this admission, negative on 06/22, 06/25, 06/27, 06/30, 07/03, 07/06. Left lower extremity venous Doppler ultrasound due to pain and swelling, normal left lower extremity venous Doppler. EKG this admission done on 06/23 showed QTc 457, MD interval 224, interval rate 64, atrial paced complexes or rhythm no longer present. REASON FOR ADMISSION: Back on June, an 89-year-old male, [place] [address] DISCHARGE SUMMARY Name: JC SALDIVAR Room #: 519A-A DIS IN ..#: [id number] Admission: 06/23/21 Attend Phys: Andrea Soler, DO Discharge: 07/06/21 Date of : [birth year] Report #: [id number] with his , brought in by his son. Apparently, the patient was having acute hallucinations worsened over the past 5 days, seeing people that are not there, having conversations with them. The patient was admitted to Geriatric Psychiatry Unit. The patient initially was functioning well and then he had a sharp decline. The patient essentially became delirious. Though, his urine was negative for culture. He was retaining substantial amounts of urine, ranging from 600 to over a 1000 mL. Flomax was added. We went through several days of straight catheterization to assist the patient in getting that issue resolved, which it was. His mentation cleared. The patient had some deconditioning. He had been living with his in an apartment on the [address], but the is limited in caregiving she can do. I recommended assisted living placement for them ideally as a couple. The son NACHO requested to go with the SNF. The night before admission, there was an episode of chest pain, which came back negative when checked with troponin. There was some intermittent fluttering of his heart noted. We did do an interrogation of his [facility], which turned out normal. The patient sees Dr. Morales Sotomayor in the [facility] system, though he should pursue outpatient cardiology for that. PHYSICAL EXAMINATION: VITAL SIGNS: On day of discharge, temperature 36.4, pulse 81, respirations 20, BP 133/64, O2 sat 94%. He should stay on discharge outpatient as assisted gait with minimal to moderate assist or assisted with a walker. MENTAL STATUS EXAMINATION: A well-developed male appearing stated age. Attention fair. Concentration limited. Speech normal rate, volume, and tone. Thought process: Linear and goal directed. Thought content: Focused on the present, little bit towards discharge. Denied SI, HI. Denies auditory or visual type hallucinations. Mood and affect was okay, congruent, euthymic. Insight and judgment fair to limited. Fund of knowledge, no greater than average. Prognosis for this patient is guarded given age of 89, comorbidities, having a neurodegenerative disorder. Greater than 40 minutes spent on discharge activities with the patient. <ELECTRONICALLY SIGNED> By: Andrea Soler DO 07/07/21 0935 2001 28 Andrea Soler DO /nt
== END 2021-07-06 13:15 | DRG 57 ==
LOC: SBH
PROVIDERS: Hospitalist; Internal Medicine; Nurse Practitioner Family; ADMIT Psychiatry & Neurology Psychiatry; ATTEND Psychiatry & Neurology Psychiatry
DX: G30.9 Alzheimer's disease, unspecified (principal); N17.9 Acute kidney failure, unspecified; F02.81 Dementia in other diseases classified elsewhere, unspecified severity, with behavioral disturbance; G93.49 Other encephalopathy; F29 Unspecified psychosis not due to a substance or known physiological condition; R45.1 Restlessness and agitation; K21.9 Gastro-esophageal reflux disease without esophagitis; I25.10 Atherosclerotic heart disease of native coronary artery without angina pectoris; E78.5 Hyperlipidemia, unspecified; N40.1 Benign prostatic hyperplasia with lower urinary tract symptoms; R33.8 Other retention of urine; F32.A Depression, unspecified; R45.4 Irritability and anger; I12.9 Hypertensive chronic kidney disease with stage 1 through stage 4 chronic kidney disease, or unspecified chronic kidney disease; Z20.822 Contact with and (suspected) exposure to COVID-19; I25.2 Old myocardial infarction; Z23 Encounter for immunization; Z95.5 Presence of coronary angioplasty implant and graft; Z86.73 Personal history of transient ischemic attack (TIA), and cerebral infarction without residual deficits; Z95.0 Presence of cardiac pacemaker; Z84.89 Family history of other specified conditions; Z82.49 Family history of ischemic heart disease and other diseases of the circulatory system; Z80.3 Family history of malignant neoplasm of breast; Z79.899 Other long term (current) drug therapy
CPT/HCPCS: 10880